=== PATIENT | male | born 1985 | race Caucasian/White ===

== ENCOUNTER 2016-09-26 19:32 | Emergency (ER) | payer OTHER ==
[2016-09-26] MEDS ORDERED: Sodium Chloride 0.9% 1000 ML 1,000 ML IV STA (19:42)
[2016-09-26] MEDS ORDERED: PROVENTIL 2.5 MG/3 ML NEB IH ONE ×2 (19:42→20:30)
[2016-09-26] MEDS ORDERED: ROCEPHIN 1 Gm-D5w 50 ml Bag** 50 ML IV ONE ×2 (19:42→20:02)
--- NOTE | 2016-09-26 19:49 | ERPHSYRPT ---
- History of Present Illness Time Seen by Provider: 09/26/16 19:34 Source: patient Exam Limitations: no limitations Patient Subjective Stated Complaint: reports with ongoing trouble with anxiety - states nausea and dizziness onsert over the last couple of days that are common symptoms for him to have during boughts of anxiety Triage Nursing Assessment: ambulatory to treatment area - steady gait - moves all extremities with equal strength. alert/oriented - appropriate affect. skin pwd - no rash/injury appreciated. resps easy - non-labored Physician History: SINCE YESTERDAY PT HAS HAD DIZZINESS(OFF BALANCE). TODAY PT HAS HAD CHEST TIGHTNESS AND DIAPHORESIS. PT STATES HE HAS HAD INTERMITTENT CHEST TIGHTNESS FOR YEARS AND INTERMITTENT NAUSEA FOR THE LAST YEAR. PT DENIES FEVER, VOMITING, ABDOMINAL PAIN. Allergies/Adverse Reactions: No Known Drug Allergies Allergy (Unverified 09/26/16 19:41) Home Medications: Ranitidine HCl [Zantac] 150 mg PO BID 09/26/16 [History] Hx Tetanus, Diphtheria Vaccination/Date Given: Yes Hx Influenza Vaccination/Date Given: No Hx Pneumococcal Vaccination/Date Given: No Immunizations Up to Date: Yes - Review of Systems Constitutional: No Fever Cardiac: Other (CHEST TIGHHTNESS) Abdominal/Gastrointestinal: Nausea, No Abdominal Pain, No Vomiting Neurological: Dizziness Psychological: Anxiety Endocrine: Excessive Sweating All Other Systems: Reviewed and Negative - Past Medical History Pertinent Past Medical History: No Neurological History: No Pertinent History ENT History: No Pertinent History Cardiac History: No Pertinent History Respiratory History: No Pertinent History Endocrine Medical History: No Pertinent History Musculoskeletal History: No Pertinent History GI Medical History: No Pertinent History - Past Surgical History Past Surgical History: Yes Other Surgical History: TONSILS - Social History Smoking Status: Current some day smoker Exposure to second hand smoke: No Drug Use: none Patient Lives Alone: No - Nursing Vital Signs Nursing Vital Signs: Initial Vital Signs Temperature 98.5 F Temperature Source Oral Pulse Rate 91 Respiratory Rate 16 Blood Pressure [] 128/63 Pain Intensity 0 - Physical Exam General Appearance: anxiety Eye Exam: PERRL/EOMI Ears, Nose, Throat Exam: dry mucous membranes, pharyngeal erythema, other ( CERUMEN OCCLUSION OF LEFT EAR) Neck Exam: normal inspection Respiratory Exam: rhonchi, wheezing (MILD EXPIRATORY WHEEZING AND RHONCHI OVER RIGHT POSTERIOR PATHAK) Cardiovascular Exam: normal heart sounds Gastrointestinal/Abdomen Exam: soft, normal bowel sounds Back Exam: normal range of motion Extremity Exam: normal inspection, No pedal edema Neurologic Exam: alert, cooperative Skin Exam: warm, dry SpO2 Interpretation: normal SpO2: 98 Oxygen Delivery: Room Air - Course Nursing assessment & vital signs reviewed: Yes EKG Interpreted by Me: RATE ([id number]), Sinus Tach, NORMAL AXIS, NORMAL INTERVALS - Radiology Exams Chest X-ray Interpretation: Interpreted by me, No Pneumonia Ordered Tests: Active Orders 24 hr Category Date Time Status Clean Catch Urine Specimen STAT Care 09/26/16 19:40 Active EKG-ER Only STAT Care 09/26/16 19:42 Active IV Insertion STAT Care 09/26/16 19:42 Active Pulse Oximetry (ED) STAT Care 09/26/16 19:40 Active CHEST 2 VIEWS (PA AND LAT) Stat Exams 09/26/16 19:40 Taken AMYLASE Stat Lab 09/26/16 19:57 Completed BLOOD CULTURE Stat Lab 09/26/16 19:42 Received CBC W DIFF Stat Lab 09/26/16 19:57 Completed CMP Stat Lab 09/26/16 19:57 Completed CULTURE, THROAT Stat Lab 09/26/16 19:56 Received CULTURE,SPUTUM Stat Lab 09/26/16 19:47 Ordered LIPASE Stat Lab 09/26/16 19:57 Completed MAGNESIUM Stat Lab 09/26/16 19:57 Completed [place] Screen Stat Lab 09/26/16 19:57 Completed NT PRO BNP Stat Lab 09/26/16 19:57 Completed STREP SCREEN-BETA A Stat Lab 09/26/16 19:56 Completed TROPONIN Stat Lab 09/26/16 19:57 Completed UA W/ MICROSCOPIC Stat Lab 09/26/16 20:00 Completed Urine Triage Profile Stat Lab 09/26/16 20:00 Completed Respiratory Nebulizer STAT RT 09/26/16 19:43 Completed Medication Summary Discontinued Medications Generic Name Dose Route Start Last Admin Trade Name Freq PRN Reason Stop Dose Admin Albuterol Sulfate 2.5 mg 09/26/16 19:42 09/26/16 20:32 Proventil 2.5 Mg/3 Ml Neb IH 09/26/16 19:43 2.5 mg STAT ONE Administration Albuterol Sulfate Confirm 09/26/16 20:30 Proventil 2.5 Mg/3 Ml Neb Administered 09/26/16 20:31 Dose 2.5 mg IH .STK-MED ONE Azithromycin 500 mg 09/26/16 20:08 09/26/16 20:29 Zithromax 250 Mg Tablet PO 09/26/16 20:09 500 mg STAT ONE Administration Azithromycin Confirm 09/26/16 20:26 Zithromax 250 Mg Tablet Administered 09/26/16 20:27 Dose 500 mg .ROUTE .STK-MED ONE Azithromycin Confirm 09/26/16 20:29 Zithromax 250 Mg Tablet Administered 09/26/16 20:30 Dose 500 mg .ROUTE .STK-MED ONE Diazepam 10 mg 09/26/16 19:57 09/26/16 20:07 Valium 5 Mg PO 09/26/16 19:58 10 mg STAT ONE Administration Diazepam Confirm 09/26/16 20:02 Valium 5 Mg Administered 09/26/16 20:03 Dose 10 mg .ROUTE .STK-MED ONE Ceftriaxone Sodium/Dextrose 50 mls @ 100 mls/hr 09/26/16 19:42 09/26/16 20:07 Rocephin 1 Gm-D5w 50 Ml Bag IV 09/26/16 20:11 100 mls/hr STAT ONE Administration Sodium Chloride 1,000 mls @ 999 mls/hr 09/26/16 19:42 09/26/16 20:07 Sodium Chloride 0.9% 1000 Ml IV 09/26/16 20:42 999 mls/hr .Q1H1M STA Administration Sodium Chloride Confirm 09/26/16 20:02 Sodium Chloride 0.9% 1000 Ml Administered 09/26/16 20:03 Dose 1,000 mls @ ud .ROUTE .STK-MED ONE Ceftriaxone Sodium/Dextrose Confirm 09/26/16 20:02 Rocephin 1 Gm-D5w 50 Ml Bag Administered 09/26/16 20:03 Dose 50 mls @ ud IV .STK-MED ONE Lab/Rad Data: Laboratory Result Diagrams 09/26/16 19:57 09/26/16 19:57 Laboratory Results 09/26/16 09/26/16 09/26/16 Range/Units 20:00 20:00 19:57 WBC (4.0-10.5) K/mm3 RBC (4.1-5.6) M/mm3 Hgb (12.5-18.0) gm/dl Hct (42-50) % MCV (78-100) fl MCH (26-32) pg MCHC (32-36) g/dl RDW (11.5-14.0) % Plt Count (150-450) K/mm3 MPV (6-9.5) fl Gran % (36.0-66.0) % Lymphocytes % (24.0-44.0) % Monocytes % (0.0-12.0) % Eosinophils % (0.00-5.0) % Basophils % (0.0-0.4) % Basophils # (0-0.4) Sodium (136-145) mEq/L Potassium (3.5-5.1) mEq/L Chloride (98-107) mEq/L Carbon Dioxide (21-32) mEq/L Anion Gap (5-15) MEQ/L BUN (9-20) mg/dL Creatinine (0.55-1.30) mg/dl Estimated GFR ML/MIN Glucose (70-110) MG/DL Calcium (8.5-10.1) mg/dL Magnesium (1.8-2.4) mg/dL Total Bilirubin (0.2-1.0) mg/dL AST (15-37) U/L ALT (12-78) U/L Alkaline Phosphatase (46-116) U/L Troponin I (0.000-0.056) ng/ml NT-Pro-B Natriuret Pep (0-125) pg/ml Serum Total Protein (6.4-8.2) gm/dL Albumin (3.4-5.0) g/dL Amylase (25-115) U/L Lipase (73-393) U/L Ur Collection Type CLEAN CATCH Urine Color MATTI (YELLOW) Urine Appearance CLEAR (CLEAR) Urine pH 5.5 (5-6) Ur Specific [place] 1.015 (1.005-1.025) Urine Protein TRACE (Negative) Urine Glucose (UA) NEGATIVE (NEGATIVE) mg/dL Urine Ketones LARGE-80 (NEGATIVE) Urine Nitrite NEGATIVE (NEGATIVE) Urine Bilirubin SMALL (NEGATIVE) Urine Urobilinogen 0.2 (0-1) mg/dL Urine WBC (Auto) NEGATIVE (NEGATIVE) Urine RBC (Auto) NEGATIVE (0-5) Nathan/ul Ur Epithelial Cells FEW (FEW) /HPF Hyaline Casts 0-2 (0-2) /LPF Urine Mucus SLIGHT (NEGATIVE) /HPF Urine Opiates Level NEG. (NEGATIVE) Ur Methadone NEG. (NEGATIVE) Urine Barbiturates NEG. (NEGATIVE) Ur Phencyclidine (PCP) NEG. (NEGATIVE) Urine Amphetamine NEG. (NEGATIVE) U Benzodiazepine Level NEG. (NEGATIVE) Urine Cocaine NEG. (NEGATIVE) Urine Marijuana (THC) POS. (NEGATIVE) Monoscreen NEGATIVE (Negative) Streptococcus Screen (Negative) Resp Infection Panel (Negative) Specimen Received 09/26/16:199909/26/16 09/26/16 09/26/16 Range/Units 19:57 19:57 19:57 WBC 12.1 H (4.0-10.5) K/mm3 RBC 5.66 H (4.1-5.6) M/mm3 Hgb 16.8 (12.5-18.0) gm/dl Hct 48.6 (42-50) % MCV 85.9 (78-100) fl MCH 29.6 (26-32) pg MCHC 34.6 (32-36) g/dl RDW 13.4 (11.5-14.0) % Plt Count 280 (150-450) K/mm3 MPV 8.5 (6-9.5) fl Gran % 75.9 H (36.0-66.0) % Lymphocytes % 15.8 L (24.0-44.0) % Monocytes % 7.3 (0.0-12.0) % Eosinophils % 0.9 (0.00-5.0) % Basophils % 0.1 (0.0-0.4) % Basophils # 0.01 (0-0.4) Sodium 140 (136-145) mEq/L Potassium 3.5 (3.5-5.1) mEq/L Chloride 103 (98-107) mEq/L Carbon Dioxide 24.9 (21-32) mEq/L Anion Gap 15.1 H (5-15) MEQ/L BUN 15 (9-20) mg/dL Creatinine 1.21 (0.55-1.30) mg/dl Estimated GFR > 60 ML/MIN Glucose 111 H (70-110) MG/DL Calcium 9.5 (8.5-10.1) mg/dL Magnesium 1.9 (1.8-2.4) mg/dL Total Bilirubin 0.8 (0.2-1.0) mg/dL AST 58 H (15-37) U/L ALT 45 (12-78) U/L Alkaline Phosphatase 84 (46-116) U/L Troponin I < 0.017 (0.000-0.056) ng/ml NT-Pro-B Natriuret Pep 75 (0-125) pg/ml Serum Total Protein 8.3 H (6.4-8.2) gm/dL Albumin 4.3 (3.4-5.0) g/dL Amylase 31 (25-115) U/L Lipase 104 (73-393) U/L Ur Collection Type Urine Color (YELLOW) Urine Appearance (CLEAR) Urine pH (5-6) Ur Specific [place] (1.005-1.025) Urine Protein (Negative) Urine Glucose (UA) (NEGATIVE) mg/dL Urine Ketones (NEGATIVE) Urine Nitrite (NEGATIVE) Urine Bilirubin (NEGATIVE) Urine Urobilinogen (0-1) mg/dL Urine WBC (Auto) (NEGATIVE) Urine RBC (Auto) (0-5) Nathan/ul Ur Epithelial Cells (FEW) /HPF Hyaline Casts (0-2) /LPF Urine Mucus (NEGATIVE) /HPF Urine Opiates Level (NEGATIVE) Ur Methadone (NEGATIVE) Urine Barbiturates (NEGATIVE) Ur Phencyclidine (PCP) (NEGATIVE) Urine Amphetamine (NEGATIVE) U Benzodiazepine Level (NEGATIVE) Urine Cocaine (NEGATIVE) Urine Marijuana (THC) (NEGATIVE) Monoscreen (Negative) Streptococcus Screen (Negative) Resp Infection Panel (Negative) Specimen Received 09/26/16 09/26/16 Range/Units 19:56 19:56 WBC (4.0-10.5) K/mm3 RBC (4.1-5.6) M/mm3 Hgb (12.5-18.0) gm/dl Hct (42-50) % MCV (78-100) fl MCH (26-32) pg MCHC (32-36) g/dl RDW (11.5-14.0) % Plt Count (150-450) K/mm3 MPV (6-9.5) fl Gran % (36.0-66.0) % Lymphocytes % (24.0-44.0) % Monocytes % (0.0-12.0) % Eosinophils % (0.00-5.0) % Basophils % (0.0-0.4) % Basophils # (0-0.4) Sodium (136-145) mEq/L Potassium (3.5-5.1) mEq/L Chloride (98-107) mEq/L Carbon Dioxide (21-32) mEq/L Anion Gap (5-15) MEQ/L BUN (9-20) mg/dL Creatinine (0.55-1.30) mg/dl Estimated GFR ML/MIN Glucose (70-110) MG/DL Calcium (8.5-10.1) mg/dL Magnesium (1.8-2.4) mg/dL Total Bilirubin (0.2-1.0) mg/dL AST (15-37) U/L ALT (12-78) U/L Alkaline Phosphatase (46-116) U/L Troponin I (0.000-0.056) ng/ml NT-Pro-B Natriuret Pep (0-125) pg/ml Serum Total Protein (6.4-8.2) gm/dL Albumin (3.4-5.0) g/dL Amylase (25-115) U/L Lipase (73-393) U/L Ur Collection Type Urine Color (YELLOW) Urine Appearance (CLEAR) Urine pH (5-6) Ur Specific [place] (1.005-1.025) Urine Protein (Negative) Urine Glucose (UA) (NEGATIVE) mg/dL Urine Ketones (NEGATIVE) Urine Nitrite (NEGATIVE) Urine Bilirubin (NEGATIVE) Urine Urobilinogen (0-1) mg/dL Urine WBC (Auto) (NEGATIVE) Urine RBC (Auto) (0-5) Nathan/ul Ur Epithelial Cells (FEW) /HPF Hyaline Casts (0-2) /LPF Urine Mucus (NEGATIVE) /HPF Urine Opiates Level (NEGATIVE) Ur Methadone (NEGATIVE) Urine Barbiturates (NEGATIVE) Ur Phencyclidine (PCP) (NEGATIVE) Urine Amphetamine (NEGATIVE) U Benzodiazepine Level (NEGATIVE) Urine Cocaine (NEGATIVE) Urine Marijuana (THC) (NEGATIVE) Monoscreen (Negative) Streptococcus Screen NEGATIVE (Negative) Resp Infection Panel NEGATIVE (Negative) Specimen Received - Departure Time of Disposition: 21:14 Departure Disposition: Home Clinical Impression: BRONCHITIS, PHARYNGITIS, ANXIETY, DIZZINESS Condition: Fair Critical Care Time: No Instructions: Vertigo, Bronchitis, Pharyngitis/Tonsillopharyngitis -- Adult Additional Instructions: FOLLOW UP WITH PRIVATE DOCTOR TOMORROW. Prescriptions: Meclizine HCl 25 mg [Antivert 25 mg] 25 mg PO Q8H PRN PRN #20 tablet PRN Reason: Dizziness Azithromycin 250 mg [Zithromax 250 MG TABLET] 250 mg PO ZPACK #6 tablet
[2016-09-26] MEDS ORDERED: Valium 5 MG PO ONE (19:57)
[2016-09-26] MEDS ORDERED: Valium 5 MG ONE (20:02)
[2016-09-26] MEDS ORDERED: Sodium Chloride 0.9% 1000 ML 1,000 ML ONE (20:02)
[2016-09-26 20:04] LABS: BASOPHIL % 0.1 % (0.0-0.4); Eosinophil % 0.9 % (0.00-5.0); Granulocytes % 75.9 % (36.0-66.0); Lymphocytes % 15.8 % (24.0-44.0); Mean Cell Volume 85.9 fl (78-100); Mean Platelet Volume 8.5 fl (6-9.5); Monocytes % 7.3 % (0.0-12.0); Platelet Count 280 K/mm3 (150-450); Red Blood Count 5.66 M/mm3 (4.1-5.6); Red Cell Distribution Width 13.4 % (11.5-14.0); White Blood Count 12.1 K/mm3 (4.0-10.5)
[2016-09-26 20:07] LABS: Mean Corpuscular Hemoglobin 29.6 pg (26-32)
[2016-09-26] MEDS ORDERED: Zithromax 250 MG TABLET PO ONE (20:08)
[2016-09-26] MEDS ORDERED: Zithromax 250 MG TABLET ONE ×2 (20:26→20:29)
[2016-09-26 20:34] LABS: Collection Type CLEAN CATCH
[2016-09-26 20:35] LABS: COMPLETE URINE MICROSCOPIC? YES; Epithelial Cells FEW /HPF (FEW); Hyaline Casts 0-2 /LPF (0-2); Mucus SLIGHT /HPF (NEGATIVE); Ph 5.5 (5-6)
[2016-09-26 20:53] LABS: ALBUMIN 4.3 g/dL (3.4-5.0); ALKALINE PHOSPHATASE 84 U/L (46-116); ANION GAP 15.1 MEQ/L (5-15); BILIRUBIN,TOTAL 0.8 mg/dL (0.2-1.0); BLOOD UREA NITROGEN 15 mg/dL (9-20); CHLORIDE 103 mEq/L (98-107); Carbon Dioxide 24.9 mEq/L (21-32); Glucose 111 MG/DL (70-110); LIPASE 104 U/L (73-393); MAGNESIUM 1.9 mg/dL (1.8-2.4); Potassium 3.5 mEq/L (3.5-5.1); SGOT/AST 58 U/L (15-37); SGPT/ALT 45 U/L (12-78); SODIUM 140 mEq/L (136-145); Total Protein 8.3 gm/dL (6.4-8.2)
[2016-09-26 21:15] VITALS: O2SAT 98
[2016-09-26 21:30] VITALS: BP 136/76; PULSE 72
--- NOTE | 2016-09-27 08:32 | XRAY ---
Indication: Chest tightness. Comparison: December 22, 2014 PA/lateral chest again demonstrates normal heart, lungs, and bony thorax.
== END 2016-09-26 21:31 | disposition home or self-care (01) ==
LOC: ED 19:32
DX: J40 Bronchitis, not specified as acute or chronic (principal); J02.9 Acute pharyngitis, unspecified; F41.9 Anxiety disorder, unspecified; R42 Dizziness and giddiness; R11.0 Nausea
CPT/HCPCS: 36000; 36415; 71020; 80053; 80307; 81000; 82150; 83690; 83735; 83880; 84484; 85025; 86308; 87040; 87070; 87430; 87631; 93005; 94640; 96360; 96365; 99284; J0696

== ENCOUNTER 2020-12-02 14:48 | Emergency (ER) | payer OTHER ==
[2020-12-02] MEDS ORDERED: Sodium Chloride 0.9% 1000 ML 1,000 ML IV STA (15:04)
[2020-12-02] MEDS ORDERED: Sodium Chloride 0.9% 1000 ML 1,000 ML ONE (15:09)
--- NOTE | 2020-12-02 15:09 | ERPHSYRPT ---
- History of Present Illness Time Seen by Provider: 12/02/20 14:56 Source: patient Exam Limitations: no limitations Patient Subjective Stated Complaint: PT states "I think I am having a reaction to effexor. I have been not wanting to eat and I have just been a little out of sorts." Triage Nursing Assessment: Pt presented alert and oriented X 3, skin pwd Pt ambulates with an upright steady gait, able to speak in clear full sentences pt in no apaprent respiratory distress. Physician History: Patient is a 35-year-old male presents to our emergency department with complaints of feeling unwell. Patient states he recently had a change in his Effexor. Per patient Effexor dose was doubled from 75-1 50. at that time his Effexor dosage was increased he felt somewhat worse. Patient called his doctor today and was advised to decrease the dose back to 75. However since then he has continued to feel unwell. Patient denies pain. No nausea no vomiting. No diarrhea no rash. Patient states his oral intake has decreased. No change in urine output. Symptoms are constant. Symptoms are mild to moderate in intensi ty. No specific worsening improving factors. Patient voices no other complaints or concerns at this time. Timing/Duration: day(s) (3 days ago) Severity: moderate Modifying Factors: Improves With: nothing Associated Symptoms: denies symptoms Allergies/Adverse Reactions: No Known Drug Allergies Allergy (Verified 12/02/20 15:02) Home Medications: ALPRAZolam [Alprazolam] 2 mg PO DAILY 12/02/20 [History] Propranolol HCl 60 mg PO DAILY 12/02/20 [History] Trazodone HCl 50 mg [Desyrel 50 mg] 50 mg PO DAILY 12/02/20 [History] Venlafaxine HCl ER 75 mg [Effexor XR 75 MG] 75 mg PO DAILY 12/02/20 [History] Hx Tetanus, Diphtheria Vaccination/Date Given: No Hx Influenza Vaccination/Date Given: No Hx Pneumococcal Vaccination/Date Given: No Immunizations Up to Date: Yes Travel Risk - International Travel Have you traveled outside of the country in past 3 weeks: No - Coronavirus Screening Are you exhibiting any of the following symptoms?: No Close contact with a COVID-19 positive Pt in past 14-21 Days: No - Vaccine Status Have you recieved a Covid-19 vaccination: No - Review of Systems Constitutional: No Symptoms, No Fever, No Chills Eyes: No Symptoms Ears, Nose, & Throat: No Symptoms Respiratory: No Symptoms, No Cough, No Dyspnea Cardiac: No Symptoms, No Chest Pain, No Edema, No Syncope Abdominal/Gastrointestinal: No Symptoms, No Abdominal Pain, No Nausea, No Vomiting, No Diarrhea Genitourinary Symptoms: No Symptoms, No Dysuria Musculoskeletal: No Symptoms, No Back Pain, No Neck Pain Skin: No Symptoms, No Rash Neurological: No Symptoms, No Dizziness, No Focal Weakness, No Sensory Changes Psychological: No Symptoms Endocrine: No Symptoms Hematologic/Lymphatic: No Symptoms Immunological/Allergic: No Symptoms All Other Systems: Reviewed and Negative - Past Medical History Pertinent Past Medical History: No Neurological History: No Pertinent History ENT History: No Pertinent History Cardiac History: No Pertinent History Respiratory History: No Pertinent History Endocrine Medical History: No Pertinent History Musculoskeletal History: No Pertinent History GI Medical History: No Pertinent History Psycho-Social History: Anxiety, Depression - Past Surgical History Past Surgical History: Yes Other Surgical History: TONSILS - Social History Smoking Status: Former smoker Exposure to second hand smoke: Yes Drug Use: none Patient Lives Alone: No - Nursing Vital Signs Nursing Vital Signs: Initial Vital Signs Temperature 97.8 F 12/02/20 14:54 Pulse Rate 74 12/02/20 14:54 Respiratory Rate 20 12/02/20 14:54 Blood Pressure 144/100 12/02/20 14:54 O2 Sat by Pulse Oximetry 99 12/02/20 14:54 Pain Scale Pain Intensity 0 - Physical Exam General Appearance: no apparent distress, alert Eye Exam: PERRL/EOMI, eyes nml inspection Ears, Nose, Throat Exam: normal ENT inspection, TMs normal, pharynx normal, moist mucous membranes Neck Exam: normal inspection, non-tender, supple, full range of motion Respiratory Exam: normal breath sounds, lungs clear, No respiratory distress Cardiovascular Exam: regular rate/rhythm, normal heart sounds, normal peripheral pulses Gastrointestinal/Abdomen Exam: soft, normal bowel sounds, other (Mild scleral icterus), No tenderness, No mass Back Exam: normal inspection, normal range of motion, No CVA tenderness, No vertebral tenderness Extremity Exam: normal inspection, normal range of motion, pelvis stable Neurologic Exam: alert, oriented x 3, cooperative, normal mood/affect, nml cerebellar function, nml station & gait, sensation nml, No motor deficits Skin Exam: normal color, warm, dry, No rash Lymphatic Exam: No adenopathy SpO2 Interpretation: normal SpO2: 99 O2 Delivery: Room Air - Course Nursing assessment & vital signs reviewed: Yes Ordered Tests: Active Orders 24 hr Category Date Time Status IV Insertion STAT Care 12/02/20 15:04 Active CBC W DIFF Stat Lab 12/02/20 15:25 Completed CMP Stat Lab 12/02/20 15:25 Completed LIPASE Stat Lab 12/02/20 15:25 Completed TROPONIN Q3H Lab 12/02/20 15:25 Completed TROPONIN Q3H Lab 12/02/20 19:30 Ordered TROPONIN Q3H Lab 12/02/20 22:30 Ordered TROPONIN Q3H Lab 12/03/20 01:30 Ordered TROPONIN Q3H Lab 12/03/20 04:30 Ordered UA W/RFX UR CULTURE Stat Lab 12/02/20 16:10 Completed Medication Summary Discontinued Medications Generic Name Dose Route Start Last Admin Trade Name [place] PRN Reason Stop Dose Admin Sodium Chloride 1,000 mls @ 999 mls/hr 12/02/20 15:04 12/02/20 16:31 Sodium Chloride 0.9% 1000 Ml IV 12/02/20 16:04 Infused .Q1H1M STA Infusion Sodium Chloride Confirm 12/02/20 15:09 Sodium Chloride 0.9% 1000 Ml Administered 12/02/20 15:10 Dose 1,000 mls @ ud .ROUTE .STK-MED ONE Lab/Rad Data: Laboratory Result Diagrams 12/02/20 15:25 12/02/20 15:25 Laboratory Results 12/02/20 12/02/20 12/02/20 Range/Units 16:10 15:25 15:25 WBC (4.0-10.5) K/mm3 RBC (4.1-5.6) M/mm3 Hgb (12.5-18.0) gm/dl Hct (42-50) % MCV (78-100) fl MCH (26-32) pg MCHC (32-36) g/dl RDW (11.5-14.0) % Plt Count (150-450) K/mm3 MPV (7.5-11.0) fl Gran % (36.0-66.0) % Eos # (Auto) (0-0.5) Absolute Lymphs (auto) (1.0-4.6) Absolute Monos (auto) (0.0-1.3) Lymphocytes % (24.0-44.0) % Monocytes % (0.0-12.0) % Eosinophils % (0.00-5.0) % Basophils % (0.0-0.4) % Absolute Granulocytes (1.4-6.9) Basophils # (0-0.4) Sodium (137-145) mmol/L Potassium (3.5-5.1) mmol/L Chloride (98-107) mmol/L Carbon Dioxide (22-30) mmol/L Anion Gap (5-15) MEQ/L BUN (9-20) mg/dL Creatinine (0.66-1.25) mg/dL Estimated GFR ML/MIN Glucose (74-106) mg/dL Calcium (8.4-10.2) mg/dL Total Bilirubin (0.2-1.3) mg/dL AST (17-59) U/L ALT (0-50) U/L Alkaline Phosphatase (38-126) U/L Troponin I < 0.012 (0.000-0.034) ng/mL Serum Total Protein (6.3-8.2) g/dL Albumin (3.5-5.0) g/dL Lipase 161 (23-300) U/L Urine Color MATTI (YELLOW) Urine Appearance CLEAR (CLEAR) Urine pH 6.0 (5-6) Ur Specific [place] 1.008 (1.005-1.025) Urine Protein NEGATIVE (Negative) Urine Ketones NEGATIVE (NEGATIVE) Urine Blood NEGATIVE (0-5) Nathan/ul Urine Nitrite NEGATIVE (NEGATIVE) Urine Bilirubin SMALL (NEGATIVE) Urine Urobilinogen 4 (0-1) mg/dL Ur Leukocyte Esterase NEGATIVE (NEGATIVE) Urine WBC (Auto) 3-5 (0-5) /HPF Urine RBC (Auto) NONE (0-2) /HPF U Hyaline Cast (Auto) 3-5 (0-2) /LPF U Epithel Cells (Auto) NONE (FEW) /HPF Urine Bacteria (Auto) NONE (NEGATIVE) /HPF Urine Mucus (Auto) SLIGHT (NEGATIVE) /HPF Urine Culture Reflexed NO (NO) Urine Glucose NEGATIVE (NEGATIVE) mg/dL 12/02/20 12/02/20 Range/Units 15:25 15:25 WBC 8.6 (4.0-10.5) K/mm3 RBC 5.88 H (4.1-5.6) M/mm3 Hgb 17.1 (12.5-18.0) gm/dl Hct 50.7 H (42-50) % MCV 86.2 (78-100) fl MCH 29.1 (26-32) pg MCHC 33.7 (32-36) g/dl RDW 14.3 H (11.5-14.0) % Plt Count 319 (150-450) K/mm3 MPV 8.9 (7.5-11.0) fl Gran % 64.8 (36.0-66.0) % Eos # (Auto) 0.19 (0-0.5) Absolute Lymphs (auto) 1.69 (1.0-4.6) Absolute Monos (auto) 1.12 (0.0-1.3) Lymphocytes % 19.7 L (24.0-44.0) % Monocytes % 13.1 H (0.0-12.0) % Eosinophils % 2.2 (0.00-5.0) % Basophils % 0.2 (0.0-0.4) % Absolute Granulocytes 5.55 (1.4-6.9) Basophils # 0.02 (0-0.4) Sodium 142 (137-145) mmol/L Potassium 3.6 (3.5-5.1) mmol/L Chloride 100 (98-107) mmol/L Carbon Dioxide 29 (22-30) mmol/L Anion Gap 16.0 H (5-15) MEQ/L BUN 5 L (9-20) mg/dL Creatinine 0.98 (0.66-1.25) mg/dL Estimated GFR > 60.0 ML/MIN Glucose 98 (74-106) mg/dL Calcium 9.7 (8.4-10.2) mg/dL Total Bilirubin 2.20 H (0.2-1.3) mg/dL AST 106 H (17-59) U/L ALT 237 H (0-50) U/L Alkaline Phosphatase 128 H (38-126) U/L Troponin I (0.000-0.034) ng/mL Serum Total Protein 9.2 H (6.3-8.2) g/dL Albumin 5.0 (3.5-5.0) g/dL Lipase (23-300) U/L Urine Color (YELLOW) Urine Appearance (CLEAR) Urine pH (5-6) Ur Specific [place] (1.005-1.025) Urine Protein (Negative) Urine Ketones (NEGATIVE) Urine Blood (0-5) Nathan/ul Urine Nitrite (NEGATIVE) Urine Bilirubin (NEGATIVE) Urine Urobilinogen (0-1) mg/dL Ur Leukocyte Esterase (NEGATIVE) Urine WBC (Auto) (0-5) /HPF Urine RBC (Auto) (0-2) /HPF U Hyaline Cast (Auto) (0-2) /LPF U Epithel Cells (Auto) (FEW) /HPF Urine Bacteria (Auto) (NEGATIVE) /HPF Urine Mucus (Auto) (NEGATIVE) /HPF Urine Culture Reflexed (NO) Urine Glucose (NEGATIVE) mg/dL - Progress Progress: improved Progress Note: Patient reassessed. He feels well. LFTs abnormal on laboratory work-up. Total bili elevated as well. This likely explains patient's mild scleral icterus. Labs otherwise essentially nonremarkable. Hepatitis panel ordered. Results pending. We contacted patient's primary care physician Dr. Salcedo. Dr. Salcedo will see patient on December 06 at 2:30 PM. Plan of care discussed with patient. He agrees to follow-up as planned. Patient states he is ready for discharge. No indication for further work-up at this time from the emergency department. Will discharge home. 12/02/20 16:18 Discussed with : Helga Will see patient in: other (Dr. Salcedo will see patient in her office on Sunday at 2:30 PM.) Counseled pt/family regarding: lab results, diagnosis, need for follow-up - Departure Departure Disposition: Home Clinical Impression: Scleral icterus, Transaminitis, Elevated bilirubin Condition: Stable Critical Care Time: No Referrals: ALBINO PHILLIPS DO [Primary Care Provider] - Additional Instructions: Discharge/Care Plan RODRIGUE LIMON was seen on 12/02/20 in the Emergency Room. The patient was counseled regarding Diagnosis,Lab results, Imaging studies, need for follow up and when to return to the Emergency Room. Prescriptions given: Discharge Note I have spoken with the patient and/or caregivers. I have explained the patient's condition, diagnosis and treatment plan based on the information available to me at this time. I have answered the patient's and/or caregiver's questions and addressed any concerns. The patient and/or caregivers have as good understanding of the patient's diagnosis, condition and treatment plan as can be expected at this point. The vital signs have been stable. The patient's condition is stable and appropriate for discharge from the emergency department. The patient will pursue further outpatient evaluation with the primary care physician or other designated or consulting physician as outlined in the discharge instructions. The patient and/or caregivers are agreeable to this plan of care and follow-up instructions have been explained in detail. The patient and/or caregivers have received these instruction. The patient/and or caregivers are aware that any significant change in condition or worsening of symptoms should prompt an immediate return to this or the closest emergency department or call 911.
[2020-12-02 15:28] LABS: Absolute Neutrophil Ct (ANC) 5.55 (1.4-6.9); BASOPHIL % 0.2 % (0.0-0.4); Basophil (Absolute #) 0.02 (0-0.4); Eosinophil % 2.2 % (0.00-5.0); Eosinophil (Absolute #) 0.19 (0-0.5); Hematocrit 50.7 % (42-50); Hemoglobin 17.1 gm/dl (12.5-18.0); Lymphocyte (Absolute #) 1.69 (1.0-4.6); Lymphocytes % 19.7 % (24.0-44.0); Mean Cell Volume 86.2 fl (78-100); Mean Corpuscular Hemoglobin 29.1 pg (26-32); Mean Corpuscular Hgb Concent. 33.7 g/dl (32-36); Mean Platelet Volume 8.9 fl (7.5-11.0); Monocyte (Absolute #) 1.12 (0.0-1.3); Monocytes % 13.1 % (0.0-12.0); Neutrophil % 64.8 % (36.0-66.0); Platelet Count 319 K/mm3 (150-450); Red Blood Count 5.88 M/mm3 (4.1-5.6); Red Cell Distribution Width 14.3 % (11.5-14.0); White Blood Count 8.6 K/mm3 (4.0-10.5)
[2020-12-02 15:37] LABS: ALKALINE PHOSPHATASE 128 U/L (38-126); BLOOD UREA NITROGEN 5 mg/dL (9-20); CHLORIDE 100 mmol/L (98-107); Calcium 9.7 mg/dL (8.4-10.2); Carbon Dioxide 29 mmol/L (22-30); Creatinine 1 0.98 mg/dL (0.66-1.25); EST GLOMERULAR FILTRATION RATE > 60.0 ML/MIN; Glucose 98 mg/dL (74-106); Potassium 3.6 mmol/L (3.5-5.1); SGOT/AST 106 U/L (17-59); SGPT/ALT 237 U/L (0-50); SODIUM 142 mmol/L (137-145); Total Protein 9.2 g/dL (6.3-8.2)
[2020-12-02 16:35] LABS: Appearance CLEAR (CLEAR); Bilirubin SMALL (NEGATIVE); Blood NEGATIVE Ery/ul (0-5); Glucose NEGATIVE (NEGATIVE); Ketones NEGATIVE (NEGATIVE); Leukocyte Esterase NEGATIVE (NEGATIVE); Mucus SLIGHT /HPF (NEGATIVE); Nitrite NEGATIVE (NEGATIVE); Protein,Urine Dip NEGATIVE (Negative); Specific Gravity 1.008 (1.005-1.025); Urobilinogen 4 mg/dL (0-1)
[2020-12-02 17:05] VITALS: BP 135/99; PULSE 56
[2020-12-02 17:06] VITALS: O2SAT 99
== END 2020-12-02 17:19 | disposition home or self-care (01) ==
LOC: ED 14:48
DX: R17 Unspecified jaundice (principal); H15.9 Unspecified disorder of sclera; R74.01 Elevation of levels of liver transaminase levels; E80.7 Disorder of bilirubin metabolism, unspecified
CPT/HCPCS: 36000; 36415; 80053; 80074; 81001; 83690; 84484; 85025; 96360; 99284